=== PATIENT | male | born 1960 | race Caucasian/White ===

== ENCOUNTER 2018-04-29 17:32 | Emergency (ER) | payer OTHER ==
[2018-04-29 18:00] VITALS: BP 131/72
[2018-04-29] MEDS ORDERED: ZIPRASIDONE 20 MG INJ IM ONE ×2 (18:30→18:55)
[2018-04-29] MEDS ORDERED: LORazepam 1MG TABLET PO ONE (18:30)
[2018-04-29 18:49] LABS: BASOPHILS # (AUTO) 0.03 x10^3/uL (0-0.1); BASOPHILS % (AUTO) 0 % (0-1); EOSINOPHILS # (AUTO) 0.27 x10^3/uL (0-0.4); EOSINOPHILS % (AUTO) 2 % (1-7); LYMPHOCYTES # (AUTO) 2.21 x10^3/uL (1-3.4); LYMPHOCYTES % (AUTO) 18 % (22-44); MD NO; MEAN CORPUSCULAR HEMOGLOBIN 31.3 pg (27.5-34.5); MONOCYTES # (AUTO) 0.66 x10^3/uL (0.2-0.8); MONOCYTES % (AUTO) 5 % (2-9); NEUTROPHILS # (AUTO) 9.17 x10^3/uL (1.8-6.8); NEUTROPHILS % (AUTO) 74 % (42-75); PLATELET COUNT 272 x10^3/uL (130-400); RED BLOOD COUNT 5.27 x10^6/uL (4.38-5.82); RED CELL DISTRIBUTION WIDTH 13.7 % (9.4-14.8)
[2018-04-29] MEDS ORDERED: DIPHENHYDRAMINE 50 MG CAPSULE ONE (18:55)
[2018-04-29 19:01] LABS: ALANINE AMINOTRANSFERASE 25 U/L (12-78); ALBUMIN 4.1 g/dL (3.4-5.0); ANION GAP 5 mmol/L (5-15); CALCIUM 8.2 mg/dL (8.5-10.1); CHLORIDE 105 mmol/L (98-107); CREATININE 0.93 mg/dL (0.7-1.3)
[2018-04-29 19:27] LABS: ALKALINE PHOSPHATASE 79 U/L (45-117); BILIRUBIN,TOTAL 0.6 mg/dL (0.2-1.0); TOTAL PROTEIN 7.3 g/dL (6.4-8.2)
[2018-04-29 19:29] LABS: AMPHETAMINE SCREEN, URINE Negative (Negative); BARBITURATE SCREEN, URINE Negative (Negative); BENZODIAZEPINE SCREEN, URINE Negative (Negative); CANNABINOID SCREEN, URINE Positive (Negative); COCAINE SCREEN, URINE Negative (Negative); METHADONE SCREEN, URINE Negative (Negative); OPIATE SCREEN, URINE Negative (Negative)
[2018-04-29] MEDS ORDERED: DIPHENHYDRAMINE 25 MG CAPSULE PO ONE (19:30)
== END 2018-04-29 20:08 | disposition home or self-care (01) ==
LOC: ED 20:06
DX: L24.9 Irritant contact dermatitis, unspecified cause (principal); B86 Scabies
CPT/HCPCS: 36415; 80053; 80307; 82607; 84443; 85025; 96372; 99283; J3486; Q0163

== ENCOUNTER 2019-10-13 10:03 | Emergency (ER) | payer SELFPAY ==
[~2019-10-13] VITALS: Ht 180.3 cm; Wt 98.0 kg
[2019-10-13 10:07] VITALS: BP 138/85
--- NOTE | 2019-10-13 11:18 | NUR ---
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
--- NOTE | 2019-10-13 11:38 | NUR ---
PT AMBULATORY TO ROOM 10 W/ C/O PARASITIC ISSUES AND STATES HE IS ON MEDICATION FOR IT X 2 WEEKS. PT STATES HE WENT TO THE RESTROOM AND WHEN HE WIPED HE SAW BRB AND DECIDED TO COME IN. PT STATES HE'S ALSO HAVING SWELLING IN BILAT HANDS. PT RESTING ON GURNEY. NADN. MONITORS APPLIED. VSS.
[2019-10-13 11:43] LABS: BASOPHILS # (AUTO) 0.06 x10^3/uL (0-0.1); BASOPHILS % (AUTO) 1 % (0-1); EOSINOPHILS # (AUTO) 0.17 x10^3/uL (0-0.4); EOSINOPHILS % (AUTO) 2 % (1-7); LYMPHOCYTES # (AUTO) 1.67 x10^3/uL (1-3.4); LYMPHOCYTES % (AUTO) 15 % (22-44); MD NO; MEAN CORPUSCULAR HEMOGLOBIN 30.9 pg (27.5-34.5); MEAN CORPUSCULAR HGB CONC 32.7 g/dL (33.2-36.2); MEAN CORPUSCULAR VOLUME 94.6 fL (81-97); MEAN PLATELET VOLUME 7.5 fL (7.4-10.4); MONOCYTES # (AUTO) 0.72 x10^3/uL (0.2-0.8); MONOCYTES % (AUTO) 6 % (2-9); NEUTROPHILS # (AUTO) 8.74 x10^3/uL (1.8-6.8); NEUTROPHILS % (AUTO) 77 % (42-75); PLATELET COUNT 383 x10^3/uL (130-400); RED BLOOD COUNT 5.42 x10^6/uL (4.38-5.82); RED CELL DISTRIBUTION WIDTH 12.9 % (9.4-14.8)
--- NOTE | 2019-10-13 11:55 | NUR ---
ANOSCOPY SET UP. REPORT GIVEN TO CATHY DU.
[2019-10-13 11:57] LABS: ALANINE AMINOTRANSFERASE 35 U/L (12-78); ALBUMIN 3.6 g/dL (3.4-5.0); ANION GAP 5 mmol/L (5-15); CALCIUM 9.2 mg/dL (8.5-10.1); CHLORIDE 105 mmol/L (98-107)
[2019-10-13 12:00] LABS: ALKALINE PHOSPHATASE 101 U/L (45-117); BILIRUBIN,TOTAL 0.5 mg/dL (0.2-1.0); CREATININE 0.89 mg/dL (0.7-1.3); TOTAL PROTEIN 8.1 g/dL (6.4-8.2)
--- NOTE | 2019-10-13 12:06 | NUR ---
Pt rectal exam set up completed. Pt resting in bed at this time.
--- NOTE | 2019-10-13 14:17 | NUR ---
Awaiting GI consult. Pt resting in bed at this time.
--- NOTE | 2019-10-13 14:49 | NUR ---
Patient/Caregiver given discharge instructions and they have confirmed that they understand the instructions. Patient ambulatory with steady gait.
== END 2019-10-13 15:01 | disposition home or self-care (01) ==
LOC: ED 12:12
DX: K92.1 Melena (principal); R09.81 Nasal congestion
CPT/HCPCS: 36415; 80053; 85025; 99283